=== PATIENT | female | born 1935 | race Hispanic/Latino ===

== ENCOUNTER 2017-03-05 12:57 | Emergency (ER) | payer MEDICARE ==
[2017-03-05 13:33] VITALS: BMI 22.1
[2017-03-05 13:44] VITALS: TEMP 97.8
[2017-03-05] MEDS ORDERED: TDAP Vaccine 0.5 mL Syr IM ONE (14:04)
--- NOTE | 2017-03-05 14:31 | ED PDOC ---
Arrival/HPI - General Chief Complaint: Trauma Time Seen by Provider: 03/05/17 13:45 Historian: Patient - History of Present Illness Narrative History of Present Illness (Text): 03/05/17 13:55 A 81 year old female, whose past medical history includes hypertension, menopause, diabetes, and TIA (8 years ago), presents to the emergency department complaining of s/p trip and fall injury last night. Patient reports she slipped on bathroom mat and struck her face onto bathtub. Patient denies LOC and recalls entire event. Patient states she had no symptoms prior to event. She visited PMD earlier this afternoon and was sent to ER for evaluation. Also, patient notes she takes Plaavix for history of TIA. PMD: Dr. Moore Past Medical History - Provider Review Nursing Documentation Reviewed: Yes - Infectious Disease Hx of Infectious Diseases: None - Reproductive Menopause: Yes - Cardiac Hx Hypertension: Yes - Neurological HX Cerebrovascular Accident: Yes (TIA 8yrs ago) - Endocrine/Metabolic Hx Diabetes Mellitus Type 1: Yes - Psychiatric Hx Substance Use: No - Anesthesia Hx Anesthesia: No Hx Anesthesia Reactions: No Hx Malignant Hyperthermia: No Family/Social History - Physician Review Nursing Documentation Reviewed: Yes Family/Social History: No Known Family HX Smoking Status: Current Some Days Smoker Hx Alcohol Use: No Hx Substance Use: No Allergies/Home Meds Allergies/Adverse Reactions: Allergies strawberry Allergy (Verified 03/05/17 13:44) RASH Home Medications: Home Meds Medication Instructions Recorded Confirmed Allopurinol [Zyloprim] 300 mg PO DAILY 03/05/17 03/05/17 Aspirin [Aspirin Chewable] 81 mg PO DAILY 03/05/17 03/05/17 Atorvastatin [Lipitor] 80 mg PO DAILY 03/05/17 03/05/17 Carvedilol [Coreg] 12.5 mg PO DAILY 03/05/17 03/05/17 Clopidogrel [Plavix] 75 mg PO DAILY 03/05/17 03/05/17 Olmesartan/Hydrochlorothiazide 20 mg PO DAILY 03/05/17 03/05/17 [Olmesartan-Hctz 20-12.5 mg Tab] Pantoprazole [Protonix EC Tab] 20 mg PO DAILY 03/05/17 03/05/17 metFORMIN [glucOPHAGE] 500 mg PO DAILY 03/05/17 03/05/17 Review of Systems - Physician Review All systems were reviewed & negative as marked: Yes - Review of Systems Eyes: Other (eye injury s/p trip and fall) Neurological: absent: Other (no LOC) Physical Exam Vital Signs Reviewed: Yes Vital Signs Temp Pulse Resp BP Pulse Ox 03/05/17 15:42 53 L 20 157/93 H 96 03/05/17 13:33 97.8 F 58 L 16 117/106 H 99 Temperature: Afebrile Blood Pressure: Normal Pulse: Regular Respiratory Rate: Normal Appearance: Positive for: Well-Appearing Pain Distress: None Mental Status: Positive for: Alert and Oriented X 3 Finger Stick Blood Glucose: 110 - Systems Exam Head: Present: Swelling (left eyelid and left orbital; patient unable to visualize due to swelling of left eye), Ecchymosis (left eyelid and left orbital ), Laceration (left eye), Other (small superficial wound to left eye) Pupils: Present: PERRL Extroacular Muscles: Present: EOMI Conjunctiva: Present: Normal Mouth: Present: Moist Mucous Membranes Neck: Present: Normal Range of Motion Respiratory/Chest: Present: Clear to Auscultation, Good Air Exchange. No: Respiratory Distress, Accessory Muscle Use Cardiovascular: Present: Regular Rate and Rhythm, Normal S1, S2. No: Murmurs Abdomen: Present: Normal Bowel Sounds. No: Tenderness, Distention, Peritoneal Signs Back: Present: Normal Inspection Upper Extremity: Present: Normal Inspection. No: Cyanosis, Edema Lower Extremity: Present: Normal Inspection. No: Edema Neurological: Present: GCS=15, CN II-XII Intact, Speech Normal Skin: Present: Warm, Dry, Normal Color. No: Rashes Psychiatric: Present: Alert, Oriented x 3, Normal Insight, Normal Concentration Medical Decision Making ED Course and Treatment: 03/05/17 14:00 Impression: 81 year old female with s/p trip and fall injury. Physical exam shows swelling and ecchymosis over entire left orbit and left eyelid, hematoma over left eye, small superficial laceration over left eye, patient has difficulty with vision due to swelling of left eye; rest of exam is unremarkable. Plan: -- Head CT -- Facial Orbital CT -- Boostrix Vaccine -- Reassess and disposition Progress Notes: 03/05/2017 14:[address] IMPRESSION: There is severe soft tissue swelling anterior to the left orbit and left frontal bone. There is a discrete hematoma in the scalp. There is no fracture or intracranial hemorrhage. Dictator: Amari Wang MD 03/05/2017 14:[address] IMPRESSION: There is severe soft tissue swelling anterior to the left orbit and left frontal bone. There is a discrete hematoma in the scalp. There is no fracture. Dictator: Amari Wang MD - RAD Interpretation Radiology Orders: 03/05/17 14:00 HEAD W/O CONTRAST [CT] Stat ORBITS/ FACIALS W/O CONTRAST [CT] Stat - Medication Orders Current Medication Orders: Discontinued Medications Tetanus/Reduced Diphtheria/Acell Pertussis (Boostrix Vaccine Inj) 0.5 ml IM .ONCE ONE Stop: 03/05/17 14:05 Last Admin: 03/05/17 15:48 Dose: 0.5 ml Immunization Registry Document 03/05/17 15:48 EQ (Rec: 03/05/17 15:48 EQ [id number]) Immunization Registry Consent Date 03/05/17 - Scribe Statement The provider has reviewed the documentation as recorded by the Jae Cervantes Provider Scribe Attestation: All medical record entries made by the Scribangelita were at my direction and personally dictated by me. I have reviewed the chart and agree that the record accurately reflects my personal performance of the history, physical exam, medical decision making, and the department course for this patient. I have also personally directed, reviewed, and agree with the discharge instructions and disposition. Disposition/Present on Arrival - Present on Arrival Any Indicators Present on Arrival: No History of DVT/PE: No History of Uncontrolled Diabetes: No Urinary Catheter: No History of Decub. Ulcer: No History Surgical Site Infection Following: None - Disposition Have Diagnosis and Disposition been Completed?: Yes Diagnosis: Facial hematoma Disposition: HOME/ ROUTINE Disposition Time: 15:00 Condition: GOOD Discharge Instructions (ExitCare): Head Injury (ED), Skin Adhesive Care (ED) Additional Instructions: Thank you for letting us take care of you today. The emergency medical care you received today was directed at your acute symptoms. If you were prescribed any medication, please fill it and take as directed. It may take several days for your symptoms to resolve. Return to the Emergency Department if your symptoms worsen, do not improve, or if you have any other problems. Please contact your doctor or call one of the physicians/clinics you have been referred to that are listed on the Patient Visit Information form that is included in your discharge packet. Bring any paperwork you were given at discharge with you along with any medications you are taking to your follow up visit. Our treatment cannot replace ongoing medical care by a primary care provider (PCP) outside of the emergency department. Thank you for allowing the [facility] team to be part of your care today. Please follow up with your primary doctor and your eye doctor in 3-4 days for re -evaluation and further management. Please return to the emergency room if you have any concerns. Referrals: Claude Moore MD [Primary Care Provider] - Follow up with primary Forms: [employer] (Lao)
--- NOTE | 2017-03-05 14:53 | CT ---
PROCEDURE: CT HEAD WITHOUT CONTRAST. HISTORY: s/p fall yesterday- on Plavix COMPARISON: None available. TECHNIQUE: Axial computed tomography images were obtained through the head/brain without intravenous contrast. Radiation dose: Total exam DLP = 692 mGy-cm. This CT exam was performed using one or more of the following dose reduction techniques: Automated exposure control, adjustment of the mA and/or kV according to patient size, and/or use of iterative reconstruction technique. FINDINGS: HEMORRHAGE: No intracranial hemorrhage. BRAIN: No mass effect or edema. No atrophy or chronic microvascular ischemic changes. VENTRICLES: Unremarkable. No hydrocephalus. CALVARIUM: Unremarkable. PARANASAL SINUSES: Unremarkable as visualized. No significant inflammatory changes. MASTOID AIR CELLS: Unremarkable as visualized. No inflammatory changes. OTHER FINDINGS: There is severe soft tissue swelling anterior to the left orbit and left frontal bone. There is a discrete hematoma in the scalp. There is no fracture or intracranial hemorrhage IMPRESSION: There is severe soft tissue swelling anterior to the left orbit and left frontal bone. There is a discrete hematoma in the scalp. There is no fracture or intracranial hemorrhage
--- NOTE | 2017-03-05 15:00 | CT ---
PROCEDURE: CT MAXILLOFACIAL BONES WITHOUT CONTRAST HISTORY: r/o fx - pain/tender around left orbit COMPARISON: None TECHNIQUE: Contiguous axial CT images of the maxillofacial bones were obtained. Coronal and sagittal reformats were generated. Radiation dose: Total exam DLP = 742 mGy-cm. This CT exam was performed using one or more of the following dose reduction techniques: Automated exposure control, adjustment of the mA and/or kV according to patient size, and/or use of iterative reconstruction technique. FINDINGS: NASAL BONES: Unremarkable. ORBITS: Unremarkable. PARANASAL SINUSES/ MASTOIDS: Clear. MAXILLA: Unremarkable. MANDIBLE/ TEMPOROMANDIBULAR JOINTS: Unremarkable. SKULL BASE: Unremarkable. TEMPORAL BONES: Middle ears and mastoid grossly unremarkable. OTHER FINDINGS: None. IMPRESSION: There is severe soft tissue swelling anterior to the left orbit and left frontal bone. There is a discrete hematoma in the scalp. There is no fracture
[2017-03-05 15:43] VITALS: BP 157/93; PULSE 53; RESP 20; O2SAT 96
== END 2017-03-05 16:04 | disposition home or self-care (01) ==
LOC: ED 12:57 → MERGE 12:57 → ED 16:04
DX: S00.83XA Contusion of other part of head, initial encounter (principal); W01.0XXA Fall on same level from slipping, tripping and stumbling without subsequent striking against object, initial encounter; Z23 Encounter for immunization; I10 Essential (primary) hypertension; E10.9 Type 1 diabetes mellitus without complications; Z79.4 Long term (current) use of insulin